=== PATIENT | female | born 2000 | race Caucasian/White ===

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

== ENCOUNTER 2022-07-29 09:44 | Day surgery (SDC) | payer OTHER ==
[2022-07-29 10:11] VITALS: BMI 26.7
[2022-07-29] MEDS ORDERED: hydrALAZINE 20 MG/ML VIAL SLOW IVP PRN (10:36)
== END 2022-07-29 12:44 | disposition home or self-care (01) ==
LOC: CSHLD/OP 09:44
PROVIDERS: ATTEND Obstetrics & Gynecology
DX: Z03.71 Encounter for suspected problem with amniotic cavity and membrane ruled out (principal); O99.013 Anemia complicating pregnancy, third trimester; D64.9 Anemia, unspecified; Z79.899 Other long term (current) drug therapy; Z3A.38 38 weeks gestation of pregnancy
CPT/HCPCS: 99283

== ENCOUNTER 2022-07-30 08:24 | Inpatient (IN) | payer BC, OTHER ==
[~2022-07-30 08:24] MED LIST: Bupivacaine 0.25% HCL 30 ML VIAL ONE
[2022-07-30] MEDS ORDERED: Promethazine HCl 25 MG/ML VIAL IM PRN ×2 (08:25→11:26)
[2022-07-30] MEDS ORDERED: Ibuprofen 800 MG TAB PO PRN (08:25)
[2022-07-30] MEDS ORDERED: Lidocaine 1% (PF) 30 ML VIAL SC PRN (08:25)
[2022-07-30] MEDS ORDERED: hydrALAZINE 20 MG/ML VIAL SLOW IVP PRN ×2 (08:25→15:01)
[2022-07-30] MEDS ORDERED: HYDROcodone/Acetaminophen 5/325 mg Tablet PO PRN ×4 (08:25→15:01)
[2022-07-30] MEDS ORDERED: Docusate 100 MG CAP PO PRN (08:25)
[2022-07-30] MEDS ORDERED: Diphenoxylate HCl/Atropine Tablet PO PRN ×2 (08:25)
[2022-07-30] MEDS ORDERED: Acetaminophen 500 MG TAB PO PRN (08:25)
[2022-07-30] MEDS ORDERED: Butorphanol Tartrate 1 MG/ML VIAL SLOW IVP PRN (08:25)
[2022-07-30] MEDS ORDERED: Carboprost 250 MCG/ML AMP IM PRN (08:25)
[2022-07-30] MEDS ORDERED: Ondansetron PF 4 MG/2 ML Vial IVP PRN ×3 (08:25→15:01)
[2022-07-30] MEDS ORDERED: NS w/ Oxytocin 30 units 500 ML IV SCH ×4 (08:30→15:15)
[2022-07-30] MEDS ORDERED: Lactated Ringer's 1,000 ML IV SCH (08:30)
[2022-07-30 08:59] VITALS: BMI 27.3
[2022-07-30 09:54] LABS: Mean Corpuscular HGB CONC 33.3 g/dL (32.0-36.0); Mean Corpuscular Hemoglobin 28.2 pg (27.0-33.0); Mean Corpuscular Volume 84.6 fl (81.6-98.3); Mean Platelet Volume 11.7 fl (7.4-10.4); Platelet Count 177 10x3/uL (150-450); RBC Distribution Width 12.6 % (11.5-14.5)
[2022-07-30] MEDS ORDERED: Fentanyl 2 mcg/Bup 0.1% Cadd 100 ML ONE (10:24)
[2022-07-30 10:53] LABS: HBSAg Index 0.17 S/CO (0-0.99); HIV (1/2) Antibody/Antigen Non-Reactive (NonReactive); HIV 1/2 INDEX 0.09 S/CO (<1.00); Hep B Surf Ag - L&D Non-Reactive S/CO (NonReactive)
[2022-07-30 10:55] LABS: Syphilis Antibody Nonreactive (Nonreactive); Syphilis Antibody Index 0.03 S/CO (<1.00 Non-Reactive)
[2022-07-30] MEDS ORDERED: Moisturizing Cream (Eucerin) 113 GM JAR TOP PRN (11:26)
[2022-07-30] MEDS ORDERED: Acetaminophen 325 MG TAB PO PRN (11:26)
[2022-07-30] MEDS ORDERED: ePHEDrine Sulfate 50 MG/10 ML VIAL SLOW IVP PRN (11:26)
[2022-07-30] MEDS ORDERED: Lactated Ringer's 500 ML IV PRN (11:26)
[2022-07-30] MEDS ORDERED: Naloxone HCl 0.4 mg/ml Vial IVP PRN ×2 (11:26)
[2022-07-30] MEDS ORDERED: diphenhydrAMINE 50 MG/ML VIAL IVP PRN (11:26)
[2022-07-30] MEDS ORDERED: Communication Order-Pharmacy FS SCH (11:30)
[2022-07-30] MEDS ORDERED: Fentanyl 2 mcg/Bupivacaine 0.1% Cassette 100 ML EPIDURAL SCH (11:30)
[2022-07-30] MEDS ORDERED: Bisacodyl 10 MG SUPP PR PRN (15:01)
[2022-07-30] MEDS ORDERED: Zolpidem Tartrate 5 MG TAB PO PRN (15:01)
[2022-07-30] MEDS ORDERED: Misoprostol 200 MCG TAB VAG PRN (15:01)
[2022-07-30] MEDS ORDERED: Preparation H Ointment 28 GM TUBE PR PRN (15:01)
[2022-07-30] MEDS ORDERED: diphenhydrAMINE 25 MG CAP PO PRN (15:01)
[2022-07-30] MEDS ORDERED: Milk Of Magnesia 30 ML UDCUP PO PRN (15:01)
[2022-07-30] MEDS ORDERED: Boostrix 0.5 ML (Tdap) VIAL (>/=7 yrs of age) IM ONE (15:01)
[2022-07-30] MEDS ORDERED: Lanolin Ointment 7 GM TUBE TOP PRN (15:01)
[2022-07-30] MEDS ORDERED: Benzocaine-Menthol 82.5 ML CAN TOP PRN (15:01)
[2022-07-30] MEDS: Ferrous Sulfate 325 MG TAB PO SCH (17:25)
[2022-07-30] MEDS: Docusate 100 MG CAP PO SCH (22:21)
[2022-07-30] MEDS: Ibuprofen 800 MG TAB PO SCH (22:21)
[2022-07-31 04:18] LABS: Hemoglobin 8.8 g/dL (12.0-15.5); Mean Corpuscular HGB CONC 32.7 g/dL (32.0-36.0); Mean Corpuscular Hemoglobin 27.9 pg (27.0-33.0); Mean Corpuscular Volume 85.4 fl (81.6-98.3); Platelet Count 136 10x3/uL (150-450); RBC Distribution Width 12.5 % (11.5-14.5); Red Blood Cell (RBC) Count 3.15 10x6/uL (3.90-5.03); White Blood Cell (WBC) Count 6.8 10x3/uL (3.5-10.5)
[2022-07-31] MEDS: Ibuprofen 800 MG TAB PO SCH ×3 (06:21→21:21)
[2022-07-31] MEDS: Ferrous Sulfate 325 MG TAB PO SCH ×2 (09:06→17:45)
[2022-07-31] MEDS: Prenatal Vitamin 1 TAB PO SCH (09:06)
[2022-07-31] MEDS: Docusate 100 MG CAP PO SCH ×2 (20:33→21:21)
[2022-08-01] MEDS: Ibuprofen 800 MG TAB PO SCH (05:09)
[2022-08-01] MEDS: Prenatal Vitamin 1 TAB PO SCH (09:05)
[2022-08-01] MEDS: Ferrous Sulfate 325 MG TAB PO SCH (09:05)
[2022-08-01] MEDS: Docusate 100 MG CAP PO SCH (09:05)
[2022-08-01 11:20] VITALS: BP 105/65; TEMP 98.6
== END 2022-08-01 11:55 | disposition home or self-care (01) | DRG 807 ==
LOC: CSHLD 08:24 → CSHPP 17:13
PROVIDERS: ADMIT Obstetrics & Gynecology; ATTEND Obstetrics & Gynecology
PROC: 10E0XZZ Delivery of Products of Conception, External Approach (ICD-10-PCS; principal; 2022-07-30)
PROC: 10907ZC Drainage of Amniotic Fluid, Therapeutic from Products of Conception, Via Natural or Artificial Opening (ICD-10-PCS; 2022-07-30)
PROC: 0W8NXZZ Division of Female Perineum, External Approach (ICD-10-PCS; 2022-07-30)
DX: O99.02 Anemia complicating childbirth (principal); Z37.0 Single live birth; O76 Abnormality in fetal heart rate and rhythm complicating labor and delivery; D64.9 Anemia, unspecified; Z3A.38 38 weeks gestation of pregnancy
CPT/HCPCS: 36415; 51702; 85027; 86780; 86850; 86900; 86901; 87340; 87389; 99283; S0020

== ENCOUNTER 2023-04-20 23:28 | Emergency (ER) | payer BC, OTHER ==
[2023-04-21] MEDS ORDERED: Ondansetron PF 4 MG/2 ML Vial ONE
[2023-04-21] MEDS ORDERED: Morphine 4 MG/ML VIAL ONE
[2023-04-21 00:30] LABS: BHCG - Serum Negative (NEGATIVE); Pregs Control Background? CLEAR/WHITE (CLR/WHITE); Pregs Control Bar Appear? YES (CONTROL BAR)
[2023-04-21 00:31] LABS: #Eosinphils 0.1 10x3/uL (0.0-0.5); #Monocytes 0.7 10x3/uL (0.0-1.1); #Neutrophils 7.6 10x3/uL (1.5-8.4); %Basophils 0.3 % (0.0-2.0); %Eosinophils 0.6 % (0.0-6.0); %Monocytes 7.2 % (0.0-10.0); %Neutrophils 79.4 % (40.0-75.0); Hematocrit 43.9 % (34.9-44.5); Hemoglobin 14.9 g/dL (12.0-15.5); Mean Corpuscular HGB CONC 33.9 g/dL (32.0-36.0); Mean Corpuscular Hemoglobin 28.7 pg (27.0-33.0); Mean Corpuscular Volume 84.6 fl (81.6-98.3); Mean Platelet Volume 10.4 fl (7.4-10.4); Platelet Count 271 10x3/uL (150-450); RBC Distribution Width 13.2 % (11.5-14.5); Red Blood Cell (RBC) Count 5.19 10x6/uL (3.90-5.03); White Blood Cell (WBC) Count 9.5 10x3/uL (3.5-10.5)
[2023-04-21 00:35] LABS: ALT (SGPT) 35 U/L (8-55); AST (SGOT) 26 U/L (5-34); Albumin 4.8 g/dL (3.5-5.0); Alkaline Phosphatase 92 U/L (40-110); Anion Gap 18 mmol/L (10-20); BUN (Urea Nitrogen) 19 mg/dL (7.0-18.7); Bilirubin, Total 1.1 mg/dL (0.2-1.2); Calc. Creatinine Clearance 0 mL/min (70-130); Calcium 10.2 mg/dL (7.8-10.44); Carbon Dioxide 21 mmol/L (22-29); Chloride 104 mmol/L (98-107); Estimated GFR 99; Glucose 112 mg/dL (70-105); Lipase 16 U/L (8-78); Potassium 3.8 mmol/L (3.5-5.1); Protein, Total 8.8 g/dL (6.0-8.3); Sodium 139 mmol/L (136-145)
[2023-04-21 00:41] LABS: Troponin I Less than 0.010 ng/mL (< 0.028)
[2023-04-21] MEDS ORDERED: Ketorolac Tromethamine 30 MG (1 mL) VIAL ONE (02:47)
[2023-04-21] MEDS ORDERED: Iopamidol 370 76% 100 ML VIAL ONE (09:44)
== END 2023-04-21 04:11 | disposition home or self-care (01) ==
LOC: CSHERS 23:28
DX: S32.020D Wedge compression fracture of second lumbar vertebra, subsequent encounter for fracture with routine healing (principal); S32.030D Wedge compression fracture of third lumbar vertebra, subsequent encounter for fracture with routine healing; S32.040D Wedge compression fracture of fourth lumbar vertebra, subsequent encounter for fracture with routine healing; S22.20XD Unspecified fracture of sternum, subsequent encounter for fracture with routine healing; R06.00 Dyspnea, unspecified; Z87.891 Personal history of nicotine dependence; V49.9XXD Car occupant (driver) (passenger) injured in unspecified traffic accident, subsequent encounter
CPT/HCPCS: 70450; 71045; 71275; 74177; 80053; 83690; 84484; 84703; 85025; 93005; 96361; 96374; 96375; J1885; J2270; J2405; Q9967

== ENCOUNTER 2024-01-12 08:45 | Inpatient (IN) | payer OTHER ==
[2024-01-12] MEDS ORDERED: Ondansetron PF 4 MG/2 ML Vial IVP PRN ×3 (09:13→15:28)
[2024-01-12] MEDS ORDERED: Diphenoxylate HCl/Atropine Tablet PO PRN ×2 (09:13)
[2024-01-12] MEDS ORDERED: hydrALAZINE 20 MG/ML VIAL SLOW IVP PRN ×2 (09:13→15:28)
[2024-01-12] MEDS ORDERED: Lidocaine 1% (PF) 30 ML VIAL SC PRN (09:13)
[2024-01-12] MEDS ORDERED: Methylergonovine 0.2 MG/ML VIAL IM PRN ×2 (09:13→15:28)
[2024-01-12] MEDS ORDERED: Misoprostol 200 MCG TAB PR PRN (09:13)
[2024-01-12] MEDS ORDERED: Carboprost 250 MCG/ML AMP IM PRN (09:13)
[2024-01-12] MEDS ORDERED: Acetaminophen 500 MG TAB PO PRN (09:13)
[2024-01-12] MEDS ORDERED: HYDROcodone/Acetaminophen 5/325 mg Tablet PO PRN ×2 (09:13)
[2024-01-12] MEDS ORDERED: fentaNYL 50 mcg/mL 1 mL Vial SLOW IVP PRN (09:13)
[2024-01-12] MEDS ORDERED: Promethazine HCl 25 MG/ML VIAL IM PRN ×2 (09:13→10:48)
[2024-01-12] MEDS ORDERED: Oxytocin 30 units/NS 500 ML 500 ML IV SCH ×2 (09:15→15:30)
[2024-01-12] MEDS ORDERED: Lactated Ringer's 1,000 ML IV SCH (09:15)
[2024-01-12] MEDS ORDERED: Penicillin G Potassium 5 MILL.UNITS in Sodium Chloride 0.9% 100 ML IVPB SCH (09:30)
[2024-01-12 09:55] LABS: Hematocrit 33.5 % (34.9-44.5); Hemoglobin 11.2 g/dL (12.0-15.5); Mean Corpuscular HGB CONC 33.4 g/dL (32.0-36.0); Mean Corpuscular Hemoglobin 28.1 pg (27.0-33.0); Mean Corpuscular Volume 84.2 fL (81.6-98.3); Mean Platelet Volume 12.1 fL (7.4-10.4); Platelet Count 144 10x3/uL (150-450); RBC Distribution Width 13.2 % (11.5-14.5); Red Blood Cell (RBC) Count 3.98 10x6/uL (3.90-5.03); White Blood Cell (WBC) Count 9.6 10x3/uL (3.5-10.5)
[2024-01-12 10:25] LABS: HBsAg Index 0.23 S/CO (0-0.99); HIV (1/2) Antibody/Antigen Non-Reactive (NonReactive); Hep B Surf Ag - L&D Non-Reactive S/CO (NonReactive)
[2024-01-12 10:26] LABS: Syphilis Antibody Nonreactive (Nonreactive); Syphilis Antibody Index 0.04 S/CO (<1.00 Non-Reactive)
[2024-01-12] MEDS ORDERED: diphenhydrAMINE 50 MG/ML VIAL IVP PRN (10:48)
[2024-01-12] MEDS ORDERED: Moisturizing Cream (Eucerin) 113 GM JAR TOP PRN (10:48)
[2024-01-12] MEDS ORDERED: Acetaminophen 325 MG TAB PO PRN (10:48)
[2024-01-12] MEDS ORDERED: ePHEDrine Sulfate 50 MG/10 ML VIAL SLOW IVP PRN (10:48)
[2024-01-12] MEDS ORDERED: Naloxone HCl 0.4 mg/ml Vial IVP PRN ×2 (10:48)
[2024-01-12] MEDS ORDERED: Lactated Ringer's 500 ML IV PRN (10:56)
[2024-01-12] MEDS ORDERED: Communication Order-Pharmacy FS SCH (11:00)
[2024-01-12] MEDS ORDERED: fentaNYL 2 mcg/Ropivacaine 0.2% Epidural 100 ML CADD EPIDURAL SCH (11:00)
[2024-01-12] MEDS ORDERED: Penicillin G 2.5 MILL.units 2.5 MILL.UNITS in Premix 1 BAG IVPB SCH (13:15)
[2024-01-12] MEDS ORDERED: Milk Of Magnesia 30 ML UDCUP PO PRN (15:28)
[2024-01-12] MEDS ORDERED: Lanolin Ointment 7 GM TUBE TOP PRN (15:28)
[2024-01-12] MEDS ORDERED: Methylergonovine 0.2 MG TAB PO PRN (15:28)
[2024-01-12] MEDS ORDERED: diphenhydrAMINE 25 MG CAP PO PRN (15:28)
[2024-01-12] MEDS ORDERED: Zolpidem Tartrate 5 MG TAB PO PRN (15:28)
[2024-01-12] MEDS ORDERED: Bisacodyl 10 MG SUPP PR PRN (15:28)
[2024-01-12] MEDS ORDERED: Preparation H Ointment 28 GM TUBE PR PRN (15:28)
[2024-01-12] MEDS ORDERED: Benzocaine-Menthol 82.5 ML CAN TOP PRN (15:28)
[2024-01-12] MEDS: Ibuprofen 800 MG TAB PO PRN (16:34)
[2024-01-12] MEDS: Ferrous Sulfate 325 MG TAB PO SCH (20:47)
[2024-01-12] MEDS ORDERED: Docusate 100 MG CAP PO PRN (21:00)
[2024-01-12] MEDS: Docusate 100 MG CAP PO SCH (21:12)
[2024-01-12] MEDS: HYDROcodone/Acetaminophen 5/325 mg Tablet PO PRN (21:15)
[2024-01-12] MEDS ORDERED: Ibuprofen 800 MG TAB PO SCH (22:00)
[2024-01-13] MEDS: Ibuprofen 800 MG TAB PO SCH (01:26)
[2024-01-13] MEDS: fentaNYL/Ropivacaine Epidural 100 ML ONE (07:08)
[2024-01-13] MEDS: Penicillin G Potassium 5 MILL.UNITS VIAL ONE (07:08)
[2024-01-13] MEDS: Boostrix 0.5 ML (Tdap) VIAL (>/=7 yrs of age) IM ONE (07:08)
[2024-01-13] MEDS: Prenatal Vitamin 1 TAB PO SCH (08:16)
[2024-01-13 11:34] VITALS: BP 114/59; TEMP 98.3
[2024-01-13] MEDS: HYDROcodone/Acetaminophen 5/325 mg Tablet PO PRN (13:18)
== END 2024-01-13 19:45 | disposition home or self-care (01) | DRG 807 ==
LOC: CSHLD/OP 08:45 → CSHLD 09:16 → CSHPP 17:40
PROVIDERS: ADMIT Obstetrics & Gynecology; ATTEND Obstetrics & Gynecology
PROC: 10E0XZZ Delivery of Products of Conception, External Approach (ICD-10-PCS; principal; 2024-01-12)
PROC: 10907ZC Drainage of Amniotic Fluid, Therapeutic from Products of Conception, Via Natural or Artificial Opening (ICD-10-PCS; 2024-01-12)
DX: O99.824 Streptococcus B carrier state complicating childbirth (principal); Z37.0 Single live birth; O76 Abnormality in fetal heart rate and rhythm complicating labor and delivery; O99.02 Anemia complicating childbirth; Z3A.38 38 weeks gestation of pregnancy; D64.9 Anemia, unspecified
CPT/HCPCS: 51702; 85027; 86780; 86850; 86900; 86901; 87340; 87389; 99285